=== PATIENT | female | born 1960 | race Asian ===

== ENCOUNTER 2016-09-25 13:51 | Emergency (ER) | payer MEDICAID, OTHER ==
[~2016-09-25 13:51] MED LIST: AMLO2.5T PO; OMEP-110 PO
[2016-09-25 15:10] LABS: BLOOD UREA NITROGEN 10 mg/dL (7-18)
[2016-09-25 17:30] VITALS: BP 152/82
== END 2016-09-25 18:03 | disposition home or self-care (01) ==
LOC: ED 15:13
DX: E87.1 Hypo-osmolality and hyponatremia (principal); R05 Cough; I10 Essential (primary) hypertension; Z79.899 Other long term (current) drug therapy; Z88.6 Allergy status to analgesic agent
CPT/HCPCS: 36415; 71010; 80048; 81003; 82040; 85025; 93005; 99285

== ENCOUNTER 2019-04-22 12:47 | Emergency (ER) | payer SELFPAY ==
[~2019-04-22] VITALS: Ht 154.9 cm; Wt 43.1 kg
[~2019-04-22 12:47] MED LIST changes: -AMLO2.5T PO; +AMLO2.5T5 PO; +PROP60TA PO
[2019-04-22 12:49] VITALS: BP 176/97
[2019-04-22] MEDS ORDERED: OXYMETAZOLINE NASAL SPRAY 0.05%,30ML ONE ×2 (13:05→13:14)
[2019-04-22] MEDS ORDERED: TRANEXAMIC ACID 100 MG/ML, 10ML ONE ×2 (13:12→13:14)
[2019-04-22] MEDS ORDERED: OXYMETAZOLINE NASAL SPRAY 0.05%, 15ML NAS ONE (13:30)
[2019-04-22] MEDS ORDERED: TRANEXAMIC ACID 100 MG/ML, 10ML TP ONE (13:30)
--- NOTE | 2019-04-22 15:39 | NUR ---
Patient given discharge instructions and they have confirmed that they understand the instructions. Patient ambulatory with steady gait.
== END 2019-04-22 15:41 | disposition home or self-care (01) ==
LOC: ED 14:25
DX: R04.0 Epistaxis (principal); I10 Essential (primary) hypertension
CPT/HCPCS: 30901; 99284

== ENCOUNTER 2019-05-06 10:16 | Emergency (ER) | payer SELFPAY ==
[~2019-05-06] VITALS: Ht 154.9 cm; Wt 43.5 kg
--- NOTE | 2019-05-06 10:38 | NUR ---
BLEEDING CONTROLLED WITH NASAL CLAMP AT THIS TIME.
--- NOTE | 2019-05-06 10:38 | NUR ---
PATIENT BROUGHT BACK FROM TRIAGE WITH CHIEF COMPLAINT OF EPITAXIS REACCURING FOR 3 WEEKS.
[2019-05-06] MEDS ORDERED: TRANEXAMIC ACID 100 MG/ML, 10ML ONE ×2 (10:43→10:59)
[2019-05-06] MEDS ORDERED: OXYMETAZOLINE NASAL SPRAY 0.05%,30ML ONE ×2 (10:43→10:59)
[2019-05-06] MEDS ORDERED: OXYMETAZOLINE NASAL SPRAY 0.05%,30ML NAS ONE (11:00)
[2019-05-06] MEDS ORDERED: TRANEXAMIC ACID 100 MG/ML, 10ML TP ONE (11:00)
[2019-05-06 11:14] LABS: BASOPHILS # (AUTO) 0.03 x10^3/uL (0-0.1); BASOPHILS % (AUTO) 0 % (0-1); EOSINOPHILS # (AUTO) 0.07 x10^3/uL (0-0.4); EOSINOPHILS % (AUTO) 1 % (1-7); LYMPHOCYTES # (AUTO) 1.12 x10^3/uL (1-3.4); LYMPHOCYTES % (AUTO) 14 % (22-44); MD NO; MEAN CORPUSCULAR HEMOGLOBIN 31.3 pg (27.0-34.8); MEAN CORPUSCULAR HGB CONC 33.1 g/dL (32.4-35.8); MEAN CORPUSCULAR VOLUME 94.8 fL (80-100); MEAN PLATELET VOLUME 6.5 fL (7.4-10.4); MONOCYTES % (AUTO) 3 % (2-9); NEUTROPHILS # (AUTO) 6.46 x10^3/uL (1.8-6.8); NEUTROPHILS % (AUTO) 82 % (42-75); PLATELET COUNT 322 x10^3/uL (130-400); RED BLOOD COUNT 4.47 x10^6/uL (3.82-5.3); RED CELL DISTRIBUTION WIDTH 12.1 % (9.6-15.2)
[2019-05-06 11:24] LABS: INTERNATIONAL NORMALIZED RATIO 0.98 (0.93-1.1); PROTHROMBIN TIME 10.3 Seconds (9.6-11.5)
[2019-05-06 11:26] LABS: ALBUMIN 3.5 g/dL (3.4-5.0); ANION GAP 6 mmol/L (5-15); CALCIUM 8.8 mg/dL (8.5-10.1); CHLORIDE 104 mmol/L (98-107); CREATININE 0.61 mg/dL (0.55-1.02)
--- NOTE | 2019-05-06 11:44 | NUR ---
BLEEDING CONTROLLED BY MD PROCEDURE.
--- NOTE | 2019-05-06 12:19 | NUR ---
DEJAH BARKER AT BEDSIDE TO EVALUATE NASAL PACKING
[2019-05-06 12:20] VITALS: BP 149/87
--- NOTE | 2019-05-06 13:07 | NUR ---
DISCHARGE INSTRUCTIONS REVIEWED
== END 2019-05-06 13:26 | disposition home or self-care (01) ==
LOC: ED 10:34
DX: R04.0 Epistaxis (principal); I10 Essential (primary) hypertension
CPT/HCPCS: 30901; 36415; 80048; 82040; 85025; 85610; 99284

== ENCOUNTER 2020-10-13 12:32 | Emergency (ER) | payer SELFPAY ==
[~2020-10-13] VITALS: Ht 154.9 cm; Wt 41.7 kg
[2020-10-13] MEDS ORDERED: MAALOX/HYOSCYAMINE/LIDOCAINE 45 ML BTL ONE (13:09)
[2020-10-13 13:26] LABS: BASOPHILS % (AUTO) 1 % (0-1); EOSINOPHILS % (AUTO) 2 % (1-7); LYMPHOCYTES % (AUTO) 22 % (22-44); MEAN CORPUSCULAR HEMOGLOBIN 32.6 pg (27.0-34.8); MEAN CORPUSCULAR HGB CONC 33.7 g/dL (32.4-35.8); MEAN PLATELET VOLUME 7.5 fL (7.4-10.4); MONOCYTES % (AUTO) 6 % (2-9); NEUTROPHILS % (AUTO) 69 % (42-75); PLATELET COUNT 247 x10^3/uL (130-400); RED BLOOD COUNT 5.02 x10^6/uL (3.82-5.3); RED CELL DISTRIBUTION WIDTH 12.3 % (9.6-15.2)
[2020-10-13 13:27] LABS: MD NO
[2020-10-13] MEDS ORDERED: MAALOX/HYOSCYAMINE/LIDOCAINE 45 ML BTL PO ONE (13:30)
[2020-10-13 13:36] LABS: ALANINE AMINOTRANSFERASE 41 U/L (12-78); ALBUMIN 3.9 g/dL (3.4-5.0); CALCIUM 8.5 mg/dL (8.5-10.1); CHLORIDE 99 mmol/L (98-107); CREATININE 0.77 mg/dL (0.55-1.02)
[2020-10-13 13:40] LABS: ALKALINE PHOSPHATASE 113 U/L (45-117); BILIRUBIN,TOTAL 0.4 mg/dL (0.2-1.0); TOTAL PROTEIN 8.4 g/dL (6.4-8.2); TROPONIN I < 0.015 ng/mL (0.000-0.045)
[2020-10-13 13:44] LABS: ANION GAP 4 mmol/L (5-15)
[2020-10-13 13:58] VITALS: BP 159/91
[2020-10-13 14:12] LABS: MICROSCOPIC NOT IND
== END 2020-10-13 15:03 | disposition home or self-care (01) ==
LOC: ED 13:34
DX: K29.00 Acute gastritis without bleeding (principal); K21.9 Gastro-esophageal reflux disease without esophagitis; R10.13 Epigastric pain; L24.5 Irritant contact dermatitis due to other chemical products; R11.0 Nausea; I10 Essential (primary) hypertension
CPT/HCPCS: 36415; 80053; 81003; 83690; 84484; 85025; 93005; 99284